=== PATIENT | female | born 1965 | race Caucasian/White ===

== ENCOUNTER 2016-11-16 11:37 | Emergency (ER) | payer OTHER ==
[~2016-11-16] VITALS: Ht 162.6 cm; Wt 100.7 kg
--- NOTE | ~2016-11-16 | CR20 ---
[facility] A Service of [facility] & [facility] RADIOLOGY TEXT RESULTS PATIENT: MARIAMA MORALES LOCATION: CFTX : 61 UNIT #: [id number] AGE: [address]: Carmita Iqbal SEX: F ORDER DR: [id number] [facility] [address] [place], [place] [address] [id number] E MR#: [id number] Acc #: [id number] NAME: MARIAMA MORALES : 1965 SEX: F STUDY DATE/TIME: 11/16/2016 12:38 UNIT: [facility] ROOM: STUDY DESCRIPTION: CR Ankle Min 3 Views Lt Attending Physician: Carmita Iqbal P.A.-C. Ordering Physician: Carmita Iqbal P.A.-C. Primary Care Physician: Sophia Collado M.D. MEDICAL IMAGING REPORT This report is preliminary unless electronic signature is present EXAM Left ankle, 3 views; 11/16/2016. HISTORY Left ankle pain, status post fall yesterday while getting out of bathtub. FINDINGS Three views of the left ankle demonstrate surgical plate and screws traversing old healed fracture of the distal fibula. No acute fracture is seen. The bones are normally mineralized and the ankle mortise is intact. There is extensive soft tissue swelling overlying the lateral malleolus. IMPRESSION 1. Soft tissue swelling overlying the lateral malleolus. No acute fracture is seen. 2. Postoperative changes involving the distal fibula. Dictated by... Sukhdev Rogers M.D. THIS IS AN ELECTRONICALLY VERIFIED REPORT Sukhdev Rogers M.D. at 11/17/2016 6:33 AM SONALI/rolly TD: 11/16/2016 23:49 JOB #: [id number] MEDICAL IMAGING REPORT Page 1 of 1 COPY
--- NOTE | ~2016-11-16 | CR252 ---
[facility] A Service of [facility] & [facility] RADIOLOGY TEXT RESULTS PATIENT: MARIAMA MORALES LOCATION: CFT[facility] : 61 UNIT #: [id number] AGE: [address]: Carmita Iqbal SEX: F ORDER DR: [id number] [facility] [address] [place], [place] [address] [id number] E MR#: [id number] Acc #: [id number] NAME: MARIAMA MORALES : 1965 SEX: F STUDY DATE/TIME: 11/16/2016 12:37 UNIT: [facility] ROOM: STUDY DESCRIPTION: CR Tibia and Fibula 2 Views Lt Attending Physician: Carmita Iqbal P.A.-C. Ordering Physician: Carmita Iqbla P.A.-C. Primary Care Physician: Sophia Collado M.D. MEDICAL IMAGING REPORT This report is preliminary unless electronic signature is present EXAM Left tibia and fibula 2 views 11/16/2016 HISTORY Left lower extremity pain status post fall while getting out of bathtub yesterday. FINDINGS 2 views of the left tibia and fibula demonstrate oblique essentially nondisplaced fracture through the proximal fibular diaphysis which appears acute or subacute. No other acute fracture or dislocation is seen. The bones are normally mineralized. Surgical plate and screws traverses the distal fibula. There is no soft tissue abnormality. IMPRESSION 1. Oblique essentially nondisplaced fracture through the proximal fibular diaphysis which appears acute or subacute. 2. Postsurgical changes involving the distal fibula. Dictated by... Sukhdev Rogers M.D. THIS IS AN ELECTRONICALLY VERIFIED REPORT Sukhdev Rogers M.D. at 11/17/2016 6:33 AM SONALI/pradeepr TD: 11/16/2016 23:44 JOB #: [id number] MEDICAL IMAGING REPORT Page 1 of 1 COPY
--- NOTE | ~2016-11-16 | CR281 ---
[facility] A Service of [facility] & [facility] RADIOLOGY TEXT RESULTS PATIENT: MARIAMA MORALES LOCATION: CFTX : 61 UNIT #: [id number] AGE: [address]: Carmita Iqbal SEX: F ORDER DR: [id number] [facility] [address] [place], [place] [address] [id number] E MR#: [id number] Acc #: [id number] NAME: MARIAMA MORALES : 1965 SEX: F STUDY DATE/TIME: 11/16/2016 12:40 UNIT: [facility] ROOM: STUDY DESCRIPTION: CR Wrist Min 3 View Lt Attending Physician: Carmita Iqbal P.A.-C. Ordering Physician: Carmita Iqbal P.A.-C. Primary Care Physician: Sophia Collado M.D. MEDICAL IMAGING REPORT This report is preliminary unless electronic signature is present EXAM Left wrist 3 views 11/16/2016 HISTORY Left wrist pain status post fall getting out of bathtub yesterday. FINDINGS 3 views of the left wrist demonstrate questionable lucency across the dorsal aspect of the triquetral bone seen only on the lateral view concerning for possible triquetral fracture. Clinical correlation is recommended. No other fracture or dislocation is seen. Subchondral cyst formation is seen in the proximal carpal row. There is mild soft tissue swelling about the left wrist. IMPRESSION 1. Ill-defined lucency along the dorsal aspect of the triquetral bone seen on the lateral view only concerning for possible nondisplaced fracture of the triquetral bone. Clinical correlation is recommended. 2. Soft tissue swelling about the left wrist. Dictated by... Sukhdev Rogers M.D. THIS IS AN ELECTRONICALLY VERIFIED REPORT Sukhdev Rogers M.D. at 11/17/2016 6:33 AM SONALI/clemente TD: 11/16/2016 23:48 JOB #: [id number] MEDICAL IMAGING REPORT Page 1 of 1 COPY
== END 2016-11-16 13:45 | disposition home or self-care (01) ==
LOC: CED 11:37 → CFTX 11:37
DX: S82.435A Nondisplaced oblique fracture of shaft of left fibula, initial encounter for closed fracture (principal); M19.90 Unspecified osteoarthritis, unspecified site; F17.210 Nicotine dependence, cigarettes, uncomplicated; E78.5 Hyperlipidemia, unspecified; Z86.19 Personal history of other infectious and parasitic diseases; W01.0XXA Fall on same level from slipping, tripping and stumbling without subsequent striking against object, initial encounter; Y92.009 Unspecified place in unspecified non-institutional (private) residence as the place of occurrence of the external cause
CPT/HCPCS: 29125; 73110; 73590; 73610; 99283

== ENCOUNTER 2016-11-19 12:52 | Emergency (ER) | payer OTHER ==
[~2016-11-19] VITALS: Ht 157.5 cm; Wt 100.7 kg
--- NOTE | ~2016-11-19 | CR142 ---
[facility] A Service of [facility] & [facility] RADIOLOGY TEXT RESULTS PATIENT: MARIAMA MORALES LOCATION: [facility] : 61 UNIT #: [id number] AGE: [address]: Sophy Murdock SEX: F ORDER DR: [id number] [facility] [place], [place] [address] [id number] E MR#: [id number] Acc #: [id number] NAME: MARIAMA MORALES : 1965 SEX: F STUDY DATE/TIME: 11/19/2016 13:26 UNIT: [facility] ROOM: STUDY DESCRIPTION: CR Hand Min 3 Views Rt Attending Physician: Sophy Murdock Pa-C Ordering Physician: Misael Palomares M.D. Primary Care Physician: Sophia Collado M.D. MEDICAL IMAGING REPORT This report is preliminary unless electronic signature is present EXAM Right hand 3 views, 11/19/2016 1326 hours CLINICAL HISTORY 51-year-old woman who fell on 11/16/2016 and fell again yesterday. Bilateral wrist and hand pain since falls. COMPARISON Right hand film 08/31/2015 FINDINGS AP, lateral and oblique views of the hand demonstrate no definite fracture of the fingers, metacarpals are carpals. There is a fracture of the distal radius which appears acute. IMPRESSION 1. No acute fracture in the hand. 2. There is an acute distal radial fracture better seen on today's wrist film. Dictated by... Yesy Araujo M.D. THIS IS AN ELECTRONICALLY VERIFIED REPORT Yesy Araujo M.D. at 11/20/2016 9:16 AM KAILEY/sarthak TD: 11/19/2016 20:16 JOB #: [id number] MEDICAL IMAGING REPORT [facility] A Service of [facility] & [facility] RADIOLOGY TEXT RESULTS PATIENT: MARIAMA MORALES LOCATION: [facility] : 61 UNIT #: [id number] AGE: [address]: Sophy Murdock SEX: F ORDER DR: Page 1 of 1 COPY
--- NOTE | ~2016-11-19 | CR282 ---
[facility] A Service of [facility] & [facility] RADIOLOGY TEXT RESULTS PATIENT: MARIAMA MORALES LOCATION: [place] : 61 UNIT #: [id number] AGE: [address]: Sophy Murdock SEX: F ORDER DR: [id number] [id number] [facility] [place], [place] [address] [id number] E MR#: [id number] Acc #: [id number] NAME: MARIAMA MORALES : 1965 SEX: F STUDY DATE/TIME: 11/19/2016 UNIT: [place] ROOM: STUDY DESCRIPTION: CR Wrist Min 3 View Rt Attending Physician: Sophy Murdock Pa-C Ordering Physician: Jelani Rosales Primary Care Physician: Sophia Collado M.D. MEDICAL IMAGING REPORT This report is preliminary unless electronic signature is present EXAM Right wrist 3 views 11/19/2016 13:24 hours COMPARISON Right hand film 08/31/2015 CLINICAL HISTORY Patient fell initially on 11/17/2016 and again yesterday. Wrist pain. FINDINGS AP, lateral and oblique views demonstrate an acute fracture of the distal radius with intraarticular extension. There is a displaced dorsal fragment. The distal ulna is intact and the carpal bones are intact. Small cystic lucencies at the lunate bone are unchanged from hand film 08/30/2016 and likely represent benign cysts. IMPRESSION There is an acute, closed distal radial fracture with linear extension into the radiocarpal joint. There is a displaced fragment seen dorsally on the lateral view only. There is no ulnar fracture. Small chronic cysts in the lunate unchanged from hand film 08/31/2015. Dictated by... Yesy Araujo M.D. THIS IS AN ELECTRONICALLY VERIFIED REPORT Yesy Araujo M.D. at 11/19/2016 2:23 PM ROSIBELM/massiel TD: 11/19/2016 13:58 JOB #: [id number] MEDICAL IMAGING REPORT [facility] A Service of [facility] & [facility] RADIOLOGY TEXT RESULTS PATIENT: MARIAMA MORALES LOCATION: [facility] : 61 UNIT #: [id number] AGE: [address]: Sophy Murdock SEX: F ORDER DR: Page 1 of 1 COPY
--- NOTE | ~2016-11-19 | CR281 ---
[facility] A Service of [facility] & [facility] RADIOLOGY TEXT RESULTS PATIENT: MARIAMA MORALES LOCATION: CFT[facility] : 61 UNIT #: [id number] AGE: [address]: Sophy Murdock SEX: F ORDER DR: [id number] [facility] [address] [place], [place] [address] [id number] E MR#: [id number] Acc #: [id number] NAME: MARIAMA MORALES : 1965 SEX: F STUDY DATE/TIME: 11/19/2016 13:26 UNIT: [facility] ROOM: STUDY DESCRIPTION: CR Wrist Min 3 View Lt Attending Physician: Sophy Murdock Pa-C Ordering Physician: Sophy Murdock Pa-C Primary Care Physician: Sophia Collado M.D. MEDICAL IMAGING REPORT This report is preliminary unless electronic signature is present EXAM Left wrist 3 views 11/19/2016 1326 hours HISTORY Patient fell on 11/16/2016 and again yesterday with bilateral wrist pain and hand pain. COMPARISON Left wrist film 11/16/2016 FINDINGS AP, lateral and oblique views demonstrate no change in mild diffuse soft tissue swelling. The distal radius and ulna are intact. Small area of cortical lucency at the triquetrum is unchanged from prior study and could represent a fracture. No additional fracture is demonstrated. IMPRESSION Stable soft tissue swelling with lucency in the triquetrum seen only on the lateral view dorsally. This is unchanged from 11/16/2016 and could represent a nondisplaced fracture. No new fracture is seen. Dictated by... Yesy Araujo M.D. THIS IS AN ELECTRONICALLY VERIFIED REPORT Yesy Araujo M.D. at 11/20/2016 9:16 AM KAILEY/clemente TD: 11/19/2016 20:21 JOB #: [id number] MEDICAL IMAGING REPORT Page 1 of 1 COPY
== END 2016-11-19 15:18 | disposition home or self-care (01) ==
LOC: CFTX 12:52 → CED 12:52 → CFTX 13:23
DX: S52.501A Unspecified fracture of the lower end of right radius, initial encounter for closed fracture (principal); F17.210 Nicotine dependence, cigarettes, uncomplicated; W01.0XXA Fall on same level from slipping, tripping and stumbling without subsequent striking against object, initial encounter; Y92.009 Unspecified place in unspecified non-institutional (private) residence as the place of occurrence of the external cause
CPT/HCPCS: 29125; 73110; 73130; 99283